=== PATIENT | male | born 1965 | race Caucasian/White ===

== ENCOUNTER → 2018-05-23 | Outpatient (CLI) | payer OTHER ==
[~2018-05-23] MED LIST: ALLO300T PO; LIDOCAINE-MPF 1%, 5ML ONE; ONDA8TAB16 PO; PRED50TA PO; [UNRECOGNIZED DRUG - REMARK] PO
== END | disposition home or self-care (01) ==
LOC: MERGE 09:57 → RAD 09:57
PROVIDERS: ATTEND Internal Medicine Hematology & Oncology
DX: C82.18 Follicular lymphoma grade II, lymph nodes of multiple sites (principal); Z88.8 Allergy status to other drugs, medicaments and biological substances; Z98.890 Other specified postprocedural states
CPT/HCPCS: 32555

== ENCOUNTER → 2018-05-26 | Outpatient (CLI) | payer OTHER ==
[~2018-05-26] MED LIST changes: +ALLO100T30 PO
== END | disposition home or self-care (01) ==
LOC: RAD 13:33 → MERGE 14:00
PROVIDERS: ATTEND Internal Medicine Hematology & Oncology
DX: C82.18 Follicular lymphoma grade II, lymph nodes of multiple sites (principal)
CPT/HCPCS: 32555

== ENCOUNTER → 2018-05-30 | Outpatient (CLI) | payer OTHER ==
[~2018-05-30] MED LIST changes: -LIDOCAINE-MPF 1%, 5ML ONE
== END | disposition home or self-care (01) ==
LOC: RAD 14:09
PROVIDERS: ATTEND Internal Medicine Hematology & Oncology
DX: C82.18 Follicular lymphoma grade II, lymph nodes of multiple sites (principal)
CPT/HCPCS: 32555

== ENCOUNTER 2018-05-31 06:20 | Day surgery (SDC) | payer OTHER ==
[~2018-05-31] VITALS: Ht 177.8 cm; Wt 66.2 kg
[~2018-05-31 06:20] MED LIST changes: -ALLO100T30 PO
[2018-05-31] MEDS ORDERED: SODIUM CHLORIDE 0.9% 1,000 ML IV SCH (07:19)
[2018-05-31] MEDS ORDERED: CEFAZOLIN PMX 1GM/50ML 50 ML IV ONE (07:30)
[2018-05-31 07:57] VITALS: BP 102/70
[2018-05-31] MEDS ORDERED: ALLO100T30 PO (07:57)
[2018-05-31] MEDS ORDERED: LIDOCAINE-MPF 1%, 5ML ONE (08:44)
[2018-05-31] MEDS ORDERED: FENTANYL PF 100 MCG/2ML ONE (08:59)
[2018-05-31] MEDS ORDERED: FLUMAZENIL 0.1 MG/1 ML, 5ML ONE (08:59)
[2018-05-31] MEDS ORDERED: NALOXONE 1 MG/ML, 2ML ONE (08:59)
[2018-05-31] MEDS ORDERED: MIDAZOLAM 1 MG/ML, 5ML ONE (08:59)
== END 2018-05-31 12:30 | disposition home or self-care (01) ==
LOC: OUT 06:20 → MERGE 08:00 → OUT 12:30
PROVIDERS: ATTEND Internal Medicine Hematology & Oncology
DX: Z45.2 Encounter for adjustment and management of vascular access device (principal); C82.18 Follicular lymphoma grade II, lymph nodes of multiple sites; Z98.890 Other specified postprocedural states
CPT/HCPCS: 36561; 76937; 77001; 99156; 99157; C1788; J0690; J1642; J2250; J3010; J7030; J2310

== ENCOUNTER 2018-06-13 15:24 | Emergency (ER) | payer OTHER ==
[~2018-06-13] VITALS: Ht 177.8 cm; Wt 67.0 kg
[~2018-06-13 15:24] MED LIST changes: +ALLO100T30 PO
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
--- NOTE | 2018-06-13 16:30 | NUR ---
IV STARTED. LABS DRAWN. POC UPDATED.
[2018-06-13 16:57] LABS: MEAN CORPUSCULAR HEMOGLOBIN 25.3 pg (27.5-34.5); MEAN CORPUSCULAR HGB CONC 33.1 g/dL (33.2-36.2); MEAN CORPUSCULAR VOLUME 76.3 fL (81-97); MEAN PLATELET VOLUME 6.4 fL (7.4-10.4); PLATELET COUNT 318 x10^3/uL (130-400); RED BLOOD COUNT 3.96 x10^6/uL (4.38-5.82)
[2018-06-13 17:02] LABS: INTERNATIONAL NORMALIZED RATIO 1.12 (0.93-1.1); PROTHROMBIN TIME 11.8 Seconds (9.6-11.5)
[2018-06-13 17:05] LABS: ALBUMIN 2.1 g/dL (3.4-5.0); ANION GAP 7 mmol/L (5-15); CALCIUM 7.5 mg/dL (8.5-10.1); CHLORIDE 108 mmol/L (98-107)
[2018-06-13 17:12] LABS: ALANINE AMINOTRANSFERASE 10 U/L (12-78); ALKALINE PHOSPHATASE 150 U/L (45-117); BILIRUBIN,TOTAL 0.9 mg/dL (0.2-1.0); CREATININE 0.89 mg/dL (0.7-1.3); TOTAL PROTEIN 5.1 g/dL (6.4-8.2); TROPONIN I < 0.015 ng/mL (0.000-0.045)
--- NOTE | 2018-06-13 17:15 | NUR ---
PT TO CT AT THIS TIME VIA [facility].
[2018-06-13 17:55] LABS: BASOPHILS # (AUTO) 0.01 x10^3/uL (0-0.1); BASOPHILS % (AUTO) 0 % (0-1); EOSINOPHILS # (AUTO) 0.15 x10^3/uL (0-0.4); EOSINOPHILS % (AUTO) 3 % (1-7); LYMPHOCYTES # (AUTO) 0.28 x10^3/uL (1-3.4); LYMPHOCYTES % (AUTO) 5 % (22-44); MD MORPH REVIEW ONLY; MONOCYTES # (AUTO) 0.04 x10^3/uL (0.2-0.8); MONOCYTES % (AUTO) 1 % (2-9); NEUTROPHILS # (AUTO) 5.51 x10^3/uL (1.8-6.8); NEUTROPHILS % (AUTO) 92 % (42-75)
[2018-06-13 18:00] LABS: ANISOCYTOSIS 1+; MICROCYTOSIS 1+
[2018-06-13 18:01] LABS: HYPOCHROMIA 1+
[2018-06-13 18:03] LABS: SPHEROCYTES 1+; TOXIC GRAN 1+
[2018-06-13 18:04] LABS: <PLATELET ESTIMATE> ADEQUATE; <PLT MORPHOLOGY> NORMAL PLT MORPH
[2018-06-13] MEDS ORDERED: LIDOCAINE-MPF 1%, 5ML ONE ×2 (18:04→18:28)
[2018-06-13] MEDS ORDERED: OMNIPAQUE 350 MG/ML, 100ML BOTTLE ONE (18:13)
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
--- NOTE | 2018-06-13 18:20 | NUR ---
PT TO IR
--- NOTE | 2018-06-13 18:48 | NUR ---
PT RETURNED FROM IR
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
--- NOTE | 2018-06-13 20:00 | NUR ---
AWAITING DIPSO AT THIS TIME. POC UPDATED WITH PT. WILL CONTINUE TO MONITOR.
[2018-06-13 20:03] VITALS: BP 101/63
--- NOTE | 2018-06-13 21:00 | NUR ---
PT GIVEN DC PAPERWORK. VERBALIZED UNDERSTANDING. AWARE TO FOLLOW UP WITH ONCOLOGY MD.
== END 2018-06-13 21:16 | disposition home or self-care (01) ==
LOC: ED 20:09
DX: R06.00 Dyspnea, unspecified (principal); J90 Pleural effusion, not elsewhere classified; R18.8 Other ascites
CPT/HCPCS: 32555; 36600; 71045; 71275; 74177; 80053; 82803; 83880; 84484; 85025; 85610; 85730; 93005; 99285; Q9967

== ENCOUNTER → 2018-07-03 | Outpatient (CLI) | payer OTHER ==
[~2018-07-03] MED LIST changes: +LIDOCAINE-MPF 1%, 5ML ONE
== END | disposition home or self-care (01) ==
LOC: RAD 10:42
PROVIDERS: ATTEND Internal Medicine Hematology & Oncology
DX: C82.18 Follicular lymphoma grade II, lymph nodes of multiple sites (principal)
CPT/HCPCS: 32555

== ENCOUNTER → 2018-07-21 | Outpatient (CLI) | payer OTHER ==
[~2018-07-21] MED LIST changes: -LIDOCAINE-MPF 1%, 5ML ONE
== END | disposition home or self-care (01) ==
LOC: PETCFH 10:33
PROVIDERS: ATTEND Internal Medicine Hematology & Oncology
DX: C82.18 Follicular lymphoma grade II, lymph nodes of multiple sites (principal); J90 Pleural effusion, not elsewhere classified; K76.89 Other specified diseases of liver
CPT/HCPCS: 78815; A9552

== ENCOUNTER → 2018-08-02 | Outpatient (CLI) | payer OTHER ==
[~2018-08-02] MED LIST changes: +LIDOCAINE-MPF 1%, 5ML ONE
== END | disposition home or self-care (01) ==
LOC: RAD 15:16
PROVIDERS: ATTEND Internal Medicine Hematology & Oncology
DX: C82.18 Follicular lymphoma grade II, lymph nodes of multiple sites (principal)
CPT/HCPCS: 32555

== ENCOUNTER → 2018-09-01 | Outpatient (CLI) | payer OTHER | END | disposition home or self-care (01) | LOC: RAD 09:18 | PROVIDERS: ATTEND Internal Medicine Hematology & Oncology | DX: J90 Pleural effusion, not elsewhere classified (principal); C82.18 Follicular lymphoma grade II, lymph nodes of multiple sites | CPT/HCPCS: 32555 ==

== ENCOUNTER → 2018-10-10 | Outpatient (CLI) | payer OTHER ==
[~2018-10-10] MED LIST changes: -LIDOCAINE-MPF 1%, 5ML ONE
== END | disposition home or self-care (01) ==
LOC: PETCFH 12:42
PROVIDERS: ATTEND Internal Medicine Hematology & Oncology
DX: C82.18 Follicular lymphoma grade II, lymph nodes of multiple sites (principal); J90 Pleural effusion, not elsewhere classified; J98.11 Atelectasis
CPT/HCPCS: 78815; A9552

== ENCOUNTER 2018-10-31 09:00 | Outpatient (CLI) | payer OTHER | END 2018-10-31 23:59 | disposition home or self-care (01) | LOC: RAD 09:00 | PROVIDERS: ATTEND Internal Medicine Hematology & Oncology | DX: C82.12 Follicular lymphoma grade II, intrathoracic lymph nodes (principal) | CPT/HCPCS: 36598; J1642; 76000 ==

== ENCOUNTER 2019-05-07 09:11 | Outpatient (CLI) | payer OTHER ==
[2019-05-07] MEDS ORDERED: OMNIPAQUE 350 MG/ML, 100ML BOTTLE ONE (15:00)
== END 2019-05-07 23:59 | disposition home or self-care (01) ==
LOC: CFH 09:11
PROVIDERS: ATTEND Internal Medicine Hematology & Oncology
DX: C82.18 Follicular lymphoma grade II, lymph nodes of multiple sites (principal); J90 Pleural effusion, not elsewhere classified; R91.8 Other nonspecific abnormal finding of lung field; N28.1 Cyst of kidney, acquired; K76.89 Other specified diseases of liver
CPT/HCPCS: 71260; 74177; Q9967

== ENCOUNTER → 2020-06-03 | Outpatient (CLI) | payer OTHER ==
[~2020-06-03] MED LIST changes: +OMNIPAQUE 350 MG/ML, 100ML BOTTLE ONE
== END | disposition home or self-care (01) ==
LOC: CFH 08:27
PROVIDERS: ATTEND Internal Medicine Hematology & Oncology
DX: C82.18 Follicular lymphoma grade II, lymph nodes of multiple sites (principal)
CPT/HCPCS: 71260; 74177; Q9967

== ENCOUNTER → 2020-09-01 | Outpatient (CLI) | payer OTHER ==
[~2020-09-01] MED LIST changes: -OMNIPAQUE 350 MG/ML, 100ML BOTTLE ONE
== END | disposition home or self-care (01) ==
LOC: CVU 06:35
PROVIDERS: ATTEND Family Medicine
DX: I08.8 Other rheumatic multiple valve diseases (principal); R07.89 Other chest pain; Z85.72 Personal history of non-Hodgkin lymphomas
CPT/HCPCS: 93306

== ENCOUNTER → 2020-10-21 | Outpatient (CLI) | payer OTHER ==
[~2020-10-21] MED LIST changes: +REGADENOSON 0.4 MG/5 ML SYRINGE ONE
== END | disposition home or self-care (01) ==
LOC: CFH 12:32
PROVIDERS: ATTEND Internal Medicine Cardiovascular Disease
DX: R07.89 Other chest pain (principal); R06.02 Shortness of breath; R94.31 Abnormal electrocardiogram [ECG] [EKG]
CPT/HCPCS: 78452; 93017; A9502; J2785

== ENCOUNTER → 2020-10-29 | Outpatient (CLI) | payer OTHER ==
[~2020-10-29] MED LIST changes: +OMNIPAQUE 350 MG/ML, 100ML BOTTLE ONE; -REGADENOSON 0.4 MG/5 ML SYRINGE ONE
== END | disposition home or self-care (01) ==
LOC: RAD 08:50
PROVIDERS: ATTEND Internal Medicine Hematology & Oncology
DX: C82.18 Follicular lymphoma grade II, lymph nodes of multiple sites (principal); K76.89 Other specified diseases of liver; K40.20 Bilateral inguinal hernia, without obstruction or gangrene, not specified as recurrent
CPT/HCPCS: 71260; 74177; Q9967

== ENCOUNTER 2020-11-21 08:48 | Day surgery (SDC) | payer OTHER ==
[~2020-11-21] VITALS: Ht 177.8 cm; Wt 78.8 kg
[~2020-11-21 08:48] MED LIST changes: -OMNIPAQUE 350 MG/ML, 100ML BOTTLE ONE
[2020-11-21] MEDS ORDERED: LIDOCAINE 1%, 20ML ONE (09:55)
[2020-11-21 09:59] VITALS: BP 115/80
[2020-11-21] MEDS ORDERED: CEFAZOLIN PMX 1GM/50ML 50 ML IV ONE (10:00)
[2020-11-21] MEDS ORDERED: SODIUM CHLORIDE 0.9% 1,000 ML IV SCH (10:00)
[2020-11-21] MEDS ORDERED: NONE PER PT (10:03)
[2020-11-21] MEDS ORDERED: MIDAZOLAM 1 MG/ML, 5ML ONE ×2 (10:10)
[2020-11-21] MEDS ORDERED: FENTANYL PF 100 MCG/2ML ONE (10:10)
[2020-11-21] MEDS ORDERED: NALOXONE 1 MG/ML, 2ML ONE (10:10)
[2020-11-21] MEDS ORDERED: FLUMAZENIL 0.1 MG/1 ML, 5ML ONE (10:10)
== END 2020-11-21 14:15 | disposition home or self-care (01) ==
LOC: OUT 08:48
PROVIDERS: ATTEND Internal Medicine Hematology & Oncology
DX: Z45.2 Encounter for adjustment and management of vascular access device (principal); C82.18 Follicular lymphoma grade II, lymph nodes of multiple sites; Z79.899 Other long term (current) drug therapy; Z88.8 Allergy status to other drugs, medicaments and biological substances
CPT/HCPCS: 36590; 77001; 99156; 99157; J2250; J3010; J2310